=== PATIENT | male | born 1965 | race Caucasian/White ===

== ENCOUNTER 2021-12-05 12:57 | Emergency (ER) | payer MEDICAID, MEDICARE ==
[~2021-12-05] VITALS: Ht 182.9 cm; Wt 92.5 kg
--- NOTE | 2021-12-05 13:30 | PHYS DOC ---
Past Medical History Past Medical History: COPD, Diabetes-Type II, High Cholesterol, Hypertension Additional Past Medical Histor: COVID-/MARCH & SEP 2021 Past Surgical History: Other Additional Past Surgical Histo: R DOUBLE LOBECTOMY D/T LUNG DETERIORATING General Adult EDM: Chief Complaint: MULTIPLE COMPLAINTS HPI: HPI: Patient is a 56 year old male patient with history of diabetes type 2, hypertension, high cholesterol, COPD currently not a smoker who presents to the ED today complaining of coughing spells that began yesterday and shortness of breath with coughing that began today. Patient denies any fever. Denies any chest pain. Reports using Anoro this morning. He states he just moved here from [place] and does not have an established PCP. He states he received a J&J COVID vaccine in March 2021 Review of Systems: Review of Systems: Constitutional: Denies fever or chills. [] Eyes: Denies change in visual acuity. [] HENT: Denies nasal congestion or sore throat. [] Respiratory: Reports coughing and shortness of breath. [] Cardiovascular: Denies chest pain or edema. [] GI: Denies abdominal pain, nausea, vomiting, bloody stools or diarrhea. [] : Denies dysuria. [] Musculoskeletal: Denies back pain or joint pain. [] Integument: Denies rash. [] Neurologic: Denies headache, focal weakness or sensory changes. [] Endocrine: Denies polyuria or polydipsia. [] Lymphatic: Denies swollen glands. [] Psychiatric: Denies depression or anxiety. [] Heart Score: C/O Chest Pain: N/A Risk Factors: Risk Factors: DM, Current or recent (<one month) smoker, HTN, HLP, family history of CAD, obesity. Risk Scores: Score 0 - 3: 2.5% MACE over next 6 weeks - Discharge Home Score 4 - 6: 20.3% MACE over next 6 weeks - Admit for Clinical Observation Score 7 - 10: 72.7% MACE over next 6 weeks - Early Invasive Strategies Allergies: Allergies: Allergies Coded Allergies Type Severity Reaction Last Updated Verified No Known Drug Allergies 12/05/21 No Physical Exam: PE: Constitutional: Well developed, well nourished, no acute distress, non-toxic appearance. [] HENT: Normocephalic, atraumatic, bilateral external ears normal, oropharynx moist, no oral exudates, nose normal. [] Eyes: PERRLA, EOMI, conjunctiva normal, no discharge. [] Neck: Normal range of motion, no tenderness, supple, no stridor. [] Cardiovascular:Heart rate regular rhythm, no murmur [] Lungs & Thorax: Short of air, coarse lung sounds Abdomen: Bowel sounds normal, soft, no tenderness, no masses, no pulsatile masses. [] Skin: Warm, dry, no erythema, no rash. [] Back: No tenderness, no CVA tenderness. [] Extremities: No tenderness, no cyanosis, no clubbing, ROM intact, no edema. [] Neurologic: Alert and oriented X 3, normal motor function, normal sensory function, no focal deficits noted. [] Psychologic: Affect normal, judgement normal, mood normal. [] Current Patient Data: Vital Signs: Vital Signs Date Time Temp Pulse Resp B/P (MAP) Pulse Ox O2 Delivery O2 Flow Rate FiO2 12/05/21 13:03 98.0 109 25 131/70 (90) 96 Room Air 98.0 EKG: EK interpreted by Dr. Barron sinus tachycardia heart rate 101 no STEMI [address] Barron sinus rhythm heart rate 92 no STEMI Radiology/Procedures: Radiology/Procedures: []PROCEDURE: PORTABLE CHEST 1V XR CHEST 1V CLINICAL INDICATIONS: Reason: cough / Spl. Instructions: / History: COMPARISON: None available. Findings: Mid and lower right lung zone infiltrates are seen. Left mid and lower lung zone interstitial thickening and peribronchial thickening is seen. Bila teral upper lobe emphysema is seen. No pleural effusion or pneumothorax is apparent. The heart size, pulmonary vasculature, mediastinum and both perla are unremarkable. Radiopaque loose bodies are seen within the left glenohumeral joint space along with degenerative osteoarthritis. IMPRESSION: Upper lobe emphysema. Right lung field infiltrates. There is interstitial thickening and peribronchial thickening of the left lung field as well which may be acute or chronic in nature. Electronically signed by: Francine Kate MD (12/05/2021 2:20 PM) [id number] DICTATED and SIGNED BY: FRANCINE KATE MD DATE: 12/05/21 [id number] 0 Course & Med Decision Making: Course & Med Decision Making Pertinent Labs and Imaging studies reviewed. (See chart for details) This a 56-year-old male patient presented to the ED today with cough that began yesterday, shortness of breath that began today. Vitals on arrival to the ED temperature 98.0, heart rate 105, respiration 25 on room air, with heart rate and respiration improved in the ED. Blood pressure 131/70, O2 sats 96%. CBC with no acute findings, CMP with glucose of 302, history of diabetes, anion gap and CO2 are normal Chest x-ray interpreted by radiologist was noted upper lobe emphysema. Right lung field infiltrates. Talk to patient about admission, he desires to go home. He states he recently moved here. Give him a doctor's list for follow-up. Discharged with Augmentin and doxycycline. Provided proper return precautions including the need to return to the ED at any point symptoms worsen Dragon Disclaimer: Dragon Disclaimer: This electronic medical record was generated, in whole or in part, using a voice recognition dictation system. Departure Departure Impression: Primary Impression: Right middle lobe pneumonia Qualified Codes: J18.9 - Pneumonia, unspecified organism Additional Impressions: Emphysema lung Qualified Codes: J43.9 - Emphysema, unspecified COPD exacerbation Disposition: HOME / SELF CARE / HOMELESS Condition: STABLE Patient Instructions: Chronic Obstructive Pulmonary Disease Exacerbation, Pneumonia, Adult, Jnps-yp-Lyde Additional Instructions: You were evaluated in the emergency room and noted to have right lobe pneumonia. You also have emphysema. Please take the prescribed antibiotics until completed. Please follow-up with your doctor from the list provided as soon as possible. Come back to the ED at any point symptoms worsen Scripts Guaifenesin/Codeine Phosphate (GUAIFENESIN-CODEINE SYRUP) 118 Ml Liquid 5 ML PO Q6HRS, #120 ML Prov: KEVIN YU FISH BAIT PICKER 12/05/21 Doxycycline Hyclate (DOXYCYCLINE HYCLATE) 100 Mg Tablet 1 TAB PO BID, #14 TAB Prov: KEVIN YU FISH BAIT PICKER 12/05/21 Amoxicillin/Potassium Clav (AMOX TR-K CLV 875-125 MG TAB) 1 Each Tablet 1 TAB PO BID, #14 TAB Prov: KEVIN YU FISH BAIT PICKER 12/05/21 JACKELYNKEVIN SMILEY FISH BAIT PICKER Dec 05, 2021 13:30
[2021-12-05 14:14] LABS: BASO # 0.1 x10^3/uL (0.0-0.2); BASO % 1 % (0-3); EOS # 0.5 x10^3/uL (0.0-0.7); EOS % 5 % (0-3); HEMATOCRIT 41.8 % (39.0-53.0); LYMPH # 1.2 x10^3/uL (1.0-4.8); LYMPH % 13 % (24-48); MEAN CORPUSCULAR HEMOGLOBIN 28 pg (25-35); MEAN CORPUSCULAR HGB CONC 33 g/dL (31-37); MEAN CORPUSCULAR VOLUME 85 fL (79-100); MONO # 0.7 x10^3/uL (0.0-1.1); MONO % 7 % (0-9); NEUT # 7.1 x10^3/uL (1.8-7.7); NEUT % 75 % (31-73); PLATELET COUNT 206 x10^3/uL (140-400); RED BLOOD COUNT 4.92 x10^6/uL (4.30-5.70); RED CELL DISTRIBUTION WIDTH 12.8 % (11.5-14.5); WHITE BLOOD COUNT 9.5 x10^3/uL (4.0-11.0)
--- NOTE | 2021-12-05 14:22 | RAD ---
XR CHEST 1V CLINICAL INDICATIONS: Reason: cough / Spl. Instructions: / History: COMPARISON: None available. Findings: Mid and lower right lung zone infiltrates are seen. Left mid and lower lung zone interstiti al thickening and peribronchial thickening is seen. Bilateral upper lobe emphysema is seen. No pleura l effusion or pneumothorax is apparent. The heart size, pulmonary vasculature, mediastinum and both h breanne are unremarkable. Radiopaque loose bodies are seen within the left glenohumeral joint space along with degenerative osteoarthritis. IMPRESSION: Upper lobe emphysema. Right lung field infiltrates. There is interstitial thickening and peribronchial thickening of the left lung field as well which may be acute or chronic in nature. Electronically signed by: Nilton Kate MD (12/05/2021 2:20 PM) [id number]
[2021-12-05 14:29] LABS: CALCIUM 8.4 mg/dL (8.5-10.1); POTASSIUM 4.3 mmol/L (3.5-5.1)
[2021-12-05 14:41] LABS: INFLUENZA A PATIENT NEGATIVE (NEGATIVE); INFLUENZA B PATIENT NEGATIVE (NEGATIVE)
[2021-12-05 14:42] LABS: ALBUMIN 3.7 g/dL (3.4-5.0); ALBUMIN/GLOBULIN RATIO 0.9 (1.0-1.7); MAGNESIUM 1.7 mg/dL (1.8-2.4); TOTAL BILIRUBIN 0.4 mg/dL (0.2-1.0); TOTAL PROTEIN 7.6 g/dL (6.4-8.2)
[2021-12-05] MEDS ORDERED: DOXYCYCLINE HYCLATE 100 MG TABLET PO ONE (15:30)
[2021-12-05] MEDS ORDERED: cefTRIAXone IV Push 1 GM VIAL. IVP ONE (15:30)
[2021-12-05] MEDS ORDERED: DOXY100T PO (16:11)
[2021-12-05] MEDS ORDERED: AMOX1TAB11 PO (16:11)
[2021-12-05] MEDS ORDERED: GUAI5LIQ PO (16:16)
[2021-12-05 16:17] VITALS: BP 130/73
[2021-12-05] MEDS ORDERED: GUAI118L13 PO (16:23)
--- NOTE | 2021-12-06 03:49 | EKG ---
[facility] [address] [place] [address] Test Date: 2021-12-05 Test Time: 14:51:03 Pat Name: SANDI SANTIAGO Department: Room: Gender: Tester Electronic Scale: : 1965 Requested By: KEVIN YU Order Number: [id number] Reading MD: Luis Manuel Raines Measurements Intervals [place] Rate: 92 P: 54 [place]: 186 QRS: -17 QRSD: 88 T: 48 QT: 394 QTc: 493 Interpretive Statements SINUS RHYTHM LEFTWARD AXIS QRS(T) CONTOUR ABNORMALITY CONSISTENT WITH SEPTAL INFARCT PROBABLY OLD Electronically Signed On 12-06-2021 20:01:00 ENTRY LEVEL INSTALLATION TECHNICIAN by Luis Manuel Raines
--- NOTE | 2021-12-06 03:49 | EKG ---
[facility] [address] [place] [address] Test Date: 2021-12-05 Test Time: 14:21:36 Pat Name: SANDI SANTIAGO Department: Room: Gender: Practice Managers: : 1965 Requested By: KEVIN YU Order Number: [id number] Reading MD: Luis Manuel Raines Measurements Intervals [place] Rate: 101 P: 107 DC: 180 QRS: 57 QRSD: 78 T: 74 QT: 322 QTc: 424 Interpretive Statements SINUS TACHYCARDIA Electronically Signed On 12-06-2021 20:01:08 UNIX ADMINISTRATOR by Luis Manuel Raines
--- NOTE | 2021-12-07 10:49 | NUR ---
IP: Attempted to contact pt concerning covid results. Phone is not accepting calls at this time.
== END 2021-12-05 16:30 | disposition home or self-care (01) ==
LOC: ER 12:57
DX: J18.9 Pneumonia, unspecified organism (principal); J34.9 Unspecified disorder of nose and nasal sinuses; Z20.822 Contact with and (suspected) exposure to COVID-19; E11.9 Type 2 diabetes mellitus without complications; I10 Essential (primary) hypertension; E78.00 Pure hypercholesterolemia, unspecified; J44.9 Chronic obstructive pulmonary disease, unspecified
CPT/HCPCS: 36415; 71045; 80053; 83605; 83735; 83880; 84145; 84443; 84484; 85025; 87040; 87428; 93005; 96374; 99285; C9803; J0696; U0003